=== PATIENT | male | born 1965 | race Caucasian/White ===

== ENCOUNTER 2019-05-28 09:26 | Outpatient (CLI) | payer OTHER ==
[~2019-05-28 09:26] MED LIST: AMBIEN10 MG PO; CIPRO750 MG PO; Colace 100MG PO; NEURONTIN PO; NORVIR80 MG/ML PO; PERCOCET 5/3251 TAB PO; PREZISTA75 MG PO; TRUVADA TABLET1 TAB PO
== END 2019-05-28 09:34 | disposition home or self-care (01) ==
LOC: LAB 09:26
DX: A64 Unspecified sexually transmitted disease (principal)